=== PATIENT | male | born 1990 | race Caucasian/White ===

== ENCOUNTER → 2016-09-02 11:00 | Outpatient (CLI) | payer MEDICAID | END | disposition home or self-care (01) | LOC: D.MRI 11:00 | DX: M54.16 Radiculopathy, lumbar region (principal) ==

== ENCOUNTER → 2016-09-15 10:50 | Outpatient (CLI) | payer MEDICAID | END | disposition home or self-care (01) | LOC: D.MRI 10:50 | DX: M25.512 Pain in left shoulder (principal) ==

== ENCOUNTER 2016-11-12 05:50 | Day surgery (SDC) | payer MEDICAID ==
[~2016-11-12] VITALS: Ht 175.3 cm; Wt 65.8 kg
[~2016-11-12 05:50] MED LIST: ATIVAN1 MG PO; HYDROCODONE-APA1 TAB PO; LOMOTIL TABLET1 TAB PO; OMEPRAZOLE40 MG PO
[2016-11-12 09:06] VITALS: Ht 175.3 cm; Wt 65.8 kg
[2016-11-12] MEDS ORDERED: HYDROCODONE-APA1 TAB PO (12:02)
--- NOTE | 2016-11-12 14:05 | NUR ---
1330 CONSUMED APPROX 90% DIET; DENIES NAUSEA; IV DC'D 1345 DISCHARGE INSTRUCTIONS REVIEWED WITH PATIENT AND PENDELUM EXERCISES DEMONSTRATED; VERBALIZED UNDERSTANDING
--- NOTE | 2016-11-14 14:20 | OP ---
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 PROCEDURES: Left shoulder arthroscopy with arthroscopic subacromial decompression, as well as arthroscopic distal clavicle excision done through a separate incision -- 1 cm. SURGEON: Donita Wolff MD. ANESTHESIA: General. INTRAOPERATIVE COMPLICATIONS: None. SUMMARY OF PATHOLOGIC FINDINGS: The patient did indeed have severe impingement syndrome with a downward sloping acromion with excoriation of the coracoacromial ligament consistent with the preoperative diagnosis. OPERATIVE SUMMARY IN DETAIL: After obtaining the appropriate preoperative orthopedic surgery consent as well as anesthetic consultation, evaluation and clearance, the patient was brought to the operating room and placed on the operating table in supine position. After general laryngeal mask was administered, the patient was placed in right lateral decubitus position. All pressure points were well padded to include down leg peroneal pad as well as axillary roll. The patient was held firmly to the operating table using the vacuum pack suction system. Left upper extremity and shoulder were then prepped and draped in routine sterile fashion. The arm was held in the Arthrex traction boom at 30 degrees of forward flexion, 30 degrees of abduction with 10 pounds of traction laterally. Arthroscopy was established in the glenohumeral joint from a posterior portal. Anterior portal was established in the anterior safe interval. Diagnostic arthroscopy of the glenohumeral joint showed no intra-articular pathology with the exception of some biceps tendinitis. Attention was turned to the subacromial space where the [place] surface tissue ablation system was utilized to denude the undersurface of the acromion of all soft tissue elements and release coracoacromial ligament. A 5-0 barrel hector was used to perform acromioplasty at the level of the acromioclavicular joint. Through a separate anterior arthroscopic portal, the 5-0 barrel hector was used to perform a distal clavicle excision for 1 cm. Having completed this, all bursa was removed anteriorly, posteriorly, superiorly and inferiorly. Next, arthroscopic portals were closed in routine interrupted fashion using 4-0 Prolene. Sterile dressings were applied. The patient was awakened, taken to recovery room in stable condition. All final needle and sponge counts were correct. 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
== END 2016-11-12 13:50 | disposition home or self-care (01) ==
LOC: D.OPS 05:50 → D.PAN 11:00 → D.OPS 11:00 → D.PAN 11:15 → D.OPS 13:50 → D.PAN 17:15
DX: M75.42 Impingement syndrome of left shoulder (principal); M13.812 Other specified arthritis, left shoulder

== ENCOUNTER 2017-05-25 10:17 | Emergency (ER) | payer MEDICAID ==
[2016-11-12 09:06] VITALS: BMI 21.4
== END 2017-05-25 13:13 | disposition home or self-care (01) ==
LOC: D.ER 10:17
DX: S46.911A Strain of unspecified muscle, fascia and tendon at shoulder and upper arm level, right arm, initial encounter (principal); X58.XXXA Exposure to other specified factors, initial encounter; Y93.89 Activity, other specified; Y92.029 Unspecified place in mobile home as the place of occurrence of the external cause

== ENCOUNTER → 2017-07-22 12:47 | Outpatient (CLI) | payer MEDICAID ==
[2016-11-12 09:06] VITALS: BMI 21.4
== END | disposition home or self-care (01) ==
LOC: D.CT 12:47
DX: M25.512 Pain in left shoulder (principal); M25.511 Pain in right shoulder

== ENCOUNTER 2017-09-02 06:30 | Day surgery (SDC) | payer MEDICAID ==
--- NOTE | ~2017-09-02 | OP ---
PATIENT NAME: RAYNA NUGENT MEDICAL RECORD: [id number] :88 LOCATION:[facility] ADMISSION DATE: SURGEON: DONITA WOLFF MD DATE OF OPERATION: 09/02/2017 PREOPERATIVE DIAGNOSIS: Hypertrophic painful left medial sternoclavicular joint. POSTOPERATIVE DIAGNOSIS: Hypertrophic painful left medial sternoclavicular joint. PROCEDURE: Resection of left medial sternoclavicular joint. SURGEON: Donita Wolff MD ANESTHESIA: General. INTRAOPERATIVE COMPLICATIONS: None. SUMMARY OF PATHOLOGIC FINDINGS: He had a very hypertrophic bulbous left sternoclavicular joint that had been injected multiple times with only periodic relief. After risks, hazards, and benefits associated with this were discussed, the patient wished to proceed. OPERATIVE SUMMARY IN DETAIL: After obtaining the appropriate preoperative orthopedic surgery consent as well as anesthetic consultation, evaluation, and clearance, the patient was brought to the operating room and placed on the operating table in the supine position. After adequate general laryngeal mask airway was administered, the patient was placed in a very slight modified beach chair position. The areas of left neck and clavicle region were prepped and draped in a routine sterile fashion. A linear incision was made over the AC joint and it was gently taken down to the level of the AT joint. Serial and sequential removal of the interposed cartilage was taken down; it was essentially torn in its entirety. At this point, a very small sagittal saw was used to make a cut about group home through and in multiple directions, it was then piecemealed out using pituitary rongeurs and then Cloward rongeurs were also utilized at the very base to be sure as to not violate the posterior capsule with the vessels behind it. Once the entire 1 cm plus of the medial clavicle had been taken out, the wound was irrigated and closed with #1 Vicryl followed by 2-0 Vicryl followed by 4-0 Prolene in a running fashion. Sterile dressings were applied. The patient was awakened and taken to the recovery room in stable condition. All final needle and sponge counts were correct. 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
[2017-09-02 07:37] VITALS: BP 126/51; BMI 20.7
[2017-09-02] MEDS ORDERED: HYDROCODONE-APA1 TAB PO (10:44)
== END 2017-09-02 12:10 | disposition home or self-care (01) ==
LOC: D.OPS 06:30 → D.PAN 08:45 → D.OPS 08:45 → D.PAN 11:00 → D.OPS 12:10
DX: M19.012 Primary osteoarthritis, left shoulder (principal); F17.200 Nicotine dependence, unspecified, uncomplicated; Z01.812 Encounter for preprocedural laboratory examination

== ENCOUNTER → 2017-11-02 13:54 | Outpatient (CLI) | payer MEDICAID | END | disposition home or self-care (01) | LOC: D.CT 13:54 | DX: S29.019A Strain of muscle and tendon of unspecified wall of thorax, initial encounter (principal); S20.212D Contusion of left front wall of thorax, subsequent encounter; M25.512 Pain in left shoulder ==

== ENCOUNTER → 2017-12-07 13:37 | Outpatient (CLI) | payer MEDICAID | END | disposition home or self-care (01) | LOC: D.MRI 13:37 | DX: M54.12 Radiculopathy, cervical region (principal) ==

== ENCOUNTER 2018-10-06 17:32 | Emergency (ER) | payer MEDICAID ==
[~2018-10-06] VITALS: Ht 175.3 cm; Wt 61.4 kg
[2018-10-06 17:40] VITALS: Ht 175.3 cm; Wt 61.4 kg
[2018-10-06 18:16] LABS: HEMOGLOBIN 13.2 g/dL (13.5-17.5); MCH 30.5 pg (26.0-34.0); MCHC 33.8 g/dL (31.0-37.0); MCV 90.1 fL (80.0-100.0); MEAN PLATELET VOLUME 10.1 fL (7.4-10.4); PLATELET COUNT 265 10x3/uL (130-400); RBC 4.33 10x6/uL (4.20-6.10); RDW 12.8 % (11.5-14.5); WBC 20.4 10x3/uL (4.8-10.8)
[2018-10-06 18:23] LABS: ALKALINE PHOSPHATASE 67 U/L (46-116); ALT (SGPT) 107 U/L (10-68); BILIRUBIN - TOTAL 0.18 mg/dL (0.2-1.3); CALC OSMOLALITY 281 mosm/kg (275-300); CALCIUM 9.1 mg/dL (8.5-10.1); CARBON DIOXIDE 29.8 mmol/L (21.0-32.0); CHLORIDE - SERUM 100 mmol/L (98-107); GLUCOSE 112 mg/dL (74-106); POTASSIUM - SERUM 3.7 mmol/L (3.5-5.1); PROTEIN - SERUM 7.6 g/dL (6.4-8.2); SODIUM 139 mmol/L (136-145); UREA NITROGEN 21 mg/dL (7-18); eGFR NON AFRICAN AMERICAN > 90 mL/min (90-120)
[2018-10-06 18:29] LABS: CREATINE KINASE 110 UL (21-232); MAGNESIUM - SERUM 2.1 mg/dL (1.8-2.4)
[2018-10-06 18:37] LABS: TROPONIN-I < 0.017 ng/mL (0.000-0.060)
[2018-10-06 18:39] LABS: EOSINOPHILS 1 % (0-7); LYMPHOCYTES 13 % (15-50); MONOCYTES 4 % (2-11); NEUTROPHILS 81 % (40-80)
[2018-10-06 18:40] LABS: PLATELET ESTIMATE NORMAL
[2018-10-06 19:22] LABS: APPEARANCE HAZY (CLEAR); BILIRUBIN NEGATIVE (NEGATIVE); COLOR STRAW (YELLOW); GLUCOSE NEGATIVE (NEGATIVE); KETONE NEGATIVE (NEGATIVE); NITRITE NEGATIVE (NEGATIVE); PROTEIN NEGATIVE (NEGATIVE); UROBILINOGEN NORMAL (NORMAL)
[2018-10-06 21:10] VITALS: BP 113/80
== END 2018-10-06 21:10 | disposition home or self-care (01) ==
LOC: D.ER 17:32
PROVIDERS: Family Medicine
DX: R07.89 Other chest pain (principal); R11.0 Nausea